=== PATIENT | female | born 1955 | race Caucasian/White ===

== ENCOUNTER 2023-06-15 21:49 | Emergency (ER) | payer MEDICARE, OTHER ==
[2023-06-15] MEDS ORDERED: HYDROmorphone 0.5 MG/0.5 ML Syringe IVPUSH ONE (22:09)
[2023-06-15] MEDS ORDERED: Ondansetron 4 MG/2 ML SDV IVPUSH ONE (22:09)
[2023-06-15] MEDS ORDERED: Sodium Chloride 0.9% 1,000 ML IV SCH (22:15)
[2023-06-15 22:16] LABS: BASOPHILS ABSOLUTE AUTO 0.04 K/uL (0.00-0.10); BASOPHILS PERCENT AUTO 0.9 % (0.1-1.3); CREATININE 0.8 mg/dL (0.5-1.0); EOSINOPHILS ABSOLUTE AUTO 0.09 K/uL (0.00-0.40); EOSINOPHILS PERCENT AUTO 2.1 % (0.0-5.4); EST CRCL DRUG DOSING (CG) 67.27 mL/min; ESTIMATED GFR 81 mL/min (>60); HEMATOCRIT 42.8 % (34.3-46.0); HEMOGLOBIN 14.5 g/dL (11.2-15.5); IMMATURE GRAN ABSOLUTE AUTO 0.05 K/uL (0.00-0.23); IMMATURE GRAN PERCENT AUTO 1.2 % (0.0-0.7); LYMPHOCYTES ABSOLUTE AUTO 1.88 K/uL (0.8-3.3); LYMPHOCYTES PERCENT AUTO 43.6 % (11.4-47.7); MEAN CORPUSCULAR HEMOGLOBIN 33.9 pg (31.6-35.5); MEAN CORPUSCULAR HGB CONC 33.9 g/dL (31.6-35.5); MONOCYTES ABSOLUTE AUTO 0.39 K/uL (0.20-0.90); NEUTROPHILS ABSOLUTE AUTO 1.86 K/uL (1.0-7.6); NEUTROPHILS PERCENT AUTO 43.2 % (40.0-78.1); PLATELET COUNT,PLT 233 K/uL (130-375); RED BLOOD CELL COUNT 4.28 M/uL (3.77-5.24); WHITE BLOOD CELL COUNT,WBC 4.3 K/uL (3.2-11.0)
[2023-06-15 22:38] LABS: A/G RATIO 1.2 (1.2-2.2); ALANINE AMINOTRANSFERASE,ALT 44 U/L (12-78); ALBUMIN 4.1 g/dL (3.4-5.0); ALKALINE PHOSPHATASE 92 U/L (46-116); ASPARTATE AMNIOTRANSFERASE,AST 35 U/L (15-37); BILIRUBIN TOTAL 0.3 mg/dL (0.2-1.0); BLOOD UREA NITROGEN,BUN 13 mg/dL (7-18); CALCIUM 9.1 mg/dL (8.5-10.1); CARBON DIOXIDE,CO2 27 mmol/L (21-32); CHLORIDE,CL 102 mmol/L (100-108); GLUCOSE RANDOM 109 mg/dL (74-106); POTASSIUM,K 3.5 mmol/L (3.6-5.2); PROTEIN TOTAL,TP 7.5 g/dL (6.4-8.2); SODIUM,NA 141 mmol/L (140-148)
[2023-06-15 22:41] LABS: ANION GAP 15.5 mmol/L (5.0-14.0)
[2023-06-15] MEDS: Iopamidol 612 MG/ML 100 ML Bottle IV SCH (22:41)
[2023-06-15] MEDS: Sodium Chloride 0.9% 50 ML IV SCH (22:41)
[2023-06-15] MEDS ORDERED: ceFAZolin 2 GM in Sodium Chloride 0.9% 50 ML IV ONE (23:53)
[2023-06-16 00:04] LABS: PROTHROMBIN TIME 9.7 sec (9.2-10.6)
[2023-06-16] MEDS ORDERED: fentaNYL 50 MCG/ML SDV IVPUSH ONE (00:43)
[2023-06-16] MEDS ORDERED: Midazolam 1 MG/ML 2 ML SDV IVPUSH ONE (00:43)
[2023-06-16] MEDS: Sodium Chloride 0.9% 50 ML IV SCH (00:50)
[2023-06-16] MEDS: Iopamidol 612 MG/ML 100 ML Bottle IV SCH (00:50)
[2023-06-16] MEDS ORDERED: Propofol 200 MG/20 ML SDV ONE (01:43)
== END 2023-06-16 02:55 | disposition other institution (70) ==
LOC: JP.ED 21:49
DX: S22.42XA Multiple fractures of ribs, left side, initial encounter for closed fracture (principal); S27.0XXA Traumatic pneumothorax, initial encounter; W18.30XA Fall on same level, unspecified, initial encounter; Y93.01 Activity, walking, marching and hiking; Y92.89 Other specified places as the place of occurrence of the external cause
CPT/HCPCS: 36415; 71045; 71260; 72125; 74177; 76377; 80053; 85025; 85610; 96365; 96375; 99285; J0690; J1170; J2405; J2704; J3490; J7030; Q9967